=== PATIENT | male | born 1995 | race Caucasian/White ===

== ENCOUNTER 2025-02-28 10:44 | Outpatient (OUT) | payer OTHER, SELFPAY ==
[2025-02-28 11:25] LABS: Hematocrit 46.0 % (42.0-54.0); Hemoglobin 15.6 g/dL (14.0-18.0); Immature Granulocytes Abs Auto 0.03 10^3/uL (0.00-0.03); Immature Granulocytes Pct Auto 0.4 % (0.0-0.5); Lymphocytes Absolute Auto 2.5 10^3/uL (1.2-3.8); Mean Corpuscular HGB Conc 33.9 g/dL (29.9-35.2); Mean Corpuscular Hemoglobin 29.9 pg (25.9-34.0); Mean Corpuscular Volume 88.1 fL (80.0-94.0); Platelet Count 211 10^3/uL (150-450); Red Blood Count 5.22 10^6/uL (4.70-6.10); White Blood Count 8.0 10^3/uL (4.0-11.0)
[2025-02-28 12:30] LABS: Alanine Aminotransferase 66 U/L (16-63); Albumin Globulin Ratio 1.0; Albumin Level 4.3 g/dL (3.4-5.0); Alkaline Phosphatase 66 U/L (46-116); Anion Gap 12.0; Aspartate Amino Transferase 23 U/L (15-37); Blood Urea Nitrogen 10.0 mg/dL (7.0-18.0); Calcium 9.4 mg/dL (8.5-10.1); Carbon Dioxide 29.9 mmol/L (21.0-32.0); Chloride 101 mmol/L (98-107); Cholesterol 177 mg/dL (<=200); Estimated GFR (African America >60 (>=60 mL/min/1.73m^2); Estimated GFR (Non-African Ame >60 (>=60 mL/min/1.73m^2); Globulin 4.1 g/dL; Glucose 94 mg/dL (74-106); HDL Cholesterol 48 mg/dL (40-60); Potassium 3.9 mmol/L (3.5-5.1); Sodium 139 mmol/L (136-145); TSH W/ REFLEX FT4 2.299 uIU/mL (0.358-3.740); Total Protein 8.4 g/dL (6.4-8.2); Triglycerides 86 mg/dL (<=150); VLDL CHOLESTEROL 17.2 mg/dL
== END 2025-02-28 10:45 | disposition home or self-care (01) ==
LOC: LAB 10:47
PROVIDERS: PCP Nurse Practitioner Family; Visit Provider Nurse Practitioner Family
DX: L65.9 Nonscarring hair loss, unspecified (principal); Z13.220 Encounter for screening for lipoid disorders; R53.83 Other fatigue
CPT/HCPCS: 36415; 80053; 80061; 84443; 85025

== ENCOUNTER 2025-03-25 07:00 | Outpatient (RCR) | payer OTHER, SELFPAY ==
--- OUTSIDE RECORDS SUMMARY | 2025-03-25 07:03 | XMS_ITS | Clinical Summary ---
Author Organization [facility] Address [address] [place] [address] Care Team Providers Care Physical Fitness Trainer Name Role Phone Unavailable Primary Care Provider Unavailabl e Social History Tobacco Use Types Packs/Day Years Used Date Smoking Tobacco: Never Assessed Sex and Gender Information Value Date Recorded Sex Assigned at Not on file Legal Sex Male 10:37 AM EDT Gender Identity Not on file Sexual Orientation Not on file Plan of Treatment Upcoming Encounters Date Type Department Care Team (Late st Contact Info) Description 04/11/2025 10:20 AM EDT Office Visit [facility] [address] [place] [address] Shefali Farris PA [address] [place] [address] Insurance [facility]
--- OUTSIDE RECORDS SUMMARY | 2025-03-25 07:04 | XMS_ITS | Patient Health Record ---
Author Organization [facility] [place] Address [address] [place] [address] Care Team Providers Care Java Portal Developer Name Role Phone Catherine Cooley CNP Primary Care Provider U rebecca Valentine Ambriz Unavailable [phone] Reason For Referral No Information Plan Of Treatment Next Appt Details Provider Name:Valentine Ambriz , 03/25/2025 02:00:00 PM, [address] [place], [address], Insurance Providers Payer Name Payer Address Payer Phone Subscriber Number Group Number Insured Name Patient Relationship to Insured Coverage Start Date Coverage End Date R [address] [address] [place] [address] [phone] [id number] TANIA RUSSO Self - patient is the insured
--- OUTSIDE RECORDS SUMMARY | 2025-03-25 10:00 | XMS_ITS ---
Author Organization [facility] [place] Address [address] [place] [address] Care Team Providers Care Manager Local Name Role Phone Catherine Cooley CNP Primary Care Provider U ashubrendanValentine Orr Unavailable [phone] REASON FOR VISIT New PT Hem Encounters Encounter Location Date Provider Diagnosis [facility] [address] [place] [id number] 03/25/2025 Valentine Ambriz Plan Of Treatment Next Appt Details Provider Name:Valentine Ambriz , 03/25/2025 02:00:00 PM, [address] [place], [address], Progress Notes * TANIA RUSSO MDOB: 6 (29 yo M)Acc No.[id number]:03/25/2025 UNLOCKED PROGRESS NOTE Progress Notes Patient: R TANIA CINTRON Provider: Skip Ambriz M.D. :1995 A ge:29 Y S ex:Male Date:03/25/2025 Address:[address] [place] [address], [address], [id number] Pcp:Catherine Cooley CNP Subjective: * Chief Complaints: * 1 . New PT Hem. * Medical History: Objective: * Vitals: Assessment: Plan: * Treatment: * * Electronic signature of Corazon Ambriz MD, [id number] on 03/25/2025 at 07:03 AM EDT Sign off status: Pending Visit Status: C ONFSMS (Voice) * Provider: Skip Ambriz M.D. Date: 0 03/25/2025 Generated for Warren mejía/Juan/Augie on: 0 03/25/2025 07:03 AM EDT
== END 2025-04-06 23:59 | disposition home or self-care (01) ==
LOC: HEMC 07:00
PROVIDERS: PCP Nurse Practitioner Family; Visit Provider Internal Medicine Hematology & Oncology
DX: Z15.09 Genetic susceptibility to other malignant neoplasm (principal); Z80.1 Family history of malignant neoplasm of trachea, bronchus and lung; Z80.8 Family history of malignant neoplasm of other organs or systems; Z80.3 Family history of malignant neoplasm of breast; Z80.41 Family history of malignant neoplasm of ovary
CPT/HCPCS: G0463